=== PATIENT | female | born 1980 | race Caucasian/White ===

== ENCOUNTER 2020-01-02 15:10 | Emergency (ER) | payer MEDICAID ==
[~2020-01-02] VITALS: Ht 154.9 cm; Wt 64.5 kg
[2020-01-02 15:14] VITALS: BP 129/64
[2020-01-02] MEDS ORDERED: DIPHENHYDRAMINE 25 MG CAPSULE PO ONE (15:30)
--- NOTE | 2020-01-02 16:22 | NUR ---
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 AURELIA
[2020-01-02] MEDS ORDERED: DIPHENHYDRAMINE 50 MG CAPSULE ONE (16:59)
[2020-01-02] MEDS ORDERED: FAMOTIDINE 20 MG TABLET ONE (16:59)
[2020-01-02] MEDS ORDERED: FAMOTIDINE 20 MG TABLET PO ONE (17:00)
== END 2020-01-02 17:09 | disposition home or self-care (01) ==
LOC: ED 16:45
DX: L20.9 Atopic dermatitis, unspecified (principal); L50.8 Other urticaria
CPT/HCPCS: 99284; J7512; Q0163

== ENCOUNTER 2020-01-04 23:58 | Emergency (ER) | payer MEDICAID ==
[~2020-01-04] VITALS: Ht 154.9 cm; Wt 60.0 kg
[2020-01-05 00:03] VITALS: BP 119/68
--- NOTE | 2020-01-05 01:00 | NUR ---
PT BROUGHT BACK TO ROOM AT THIS TIME.
--- NOTE | 2020-01-05 01:08 | NUR ---
THIS IS A 39 YO F W/ C/O SUDDEN ONSET RT FOOT PAIN. PT DENIES INJ. PT CAN BEAR MINIMAL WEIGHT. RESP EVEN AND UNLABORED, NADN. PT RESTING ON GURNEY AWAITING ED EVAL.
[2020-01-05] MEDS ORDERED: IBUPROFEN 600 MG TABLET PO ONE (01:30)
[2020-01-05] MEDS ORDERED: IBUPROFEN 600 MG TABLET ONE (01:31)
--- NOTE | 2020-01-05 01:34 | NUR ---
PT MEDICATED PER EMAR.
--- NOTE | 2020-01-05 01:53 | NUR ---
Report received from ALFRED Minor. This RN to assume care. Patient getting xray.
--- NOTE | 2020-01-05 01:53 | NUR ---
REPORT GIVEN TO EMILY SIMON.
== END 2020-01-05 03:04 | disposition home or self-care (01) ==
LOC: ED 01-05 02:15
DX: M25.571 Pain in right ankle and joints of right foot (principal); Z72.9 Problem related to lifestyle, unspecified; X58.XXXA Exposure to other specified factors, initial encounter; Y93.89 Activity, other specified; Y92.488 Other paved roadways as the place of occurrence of the external cause; Y99.8 Other external cause status
CPT/HCPCS: 99283

== ENCOUNTER 2020-05-07 18:55 | Emergency (ER) | payer MEDICAID ==
[~2020-05-07] VITALS: Ht 154.9 cm; Wt 62.8 kg
[2020-05-07 19:32] LABS: BASOPHILS # (AUTO) 0.04 x10^3/uL (0-0.1); BASOPHILS % (AUTO) 0 % (0-1); EOSINOPHILS # (AUTO) 0.08 x10^3/uL (0-0.4); EOSINOPHILS % (AUTO) 1 % (1-7); LYMPHOCYTES # (AUTO) 1.98 x10^3/uL (1-3.4); LYMPHOCYTES % (AUTO) 16 % (22-44); MD NO; MEAN CORPUSCULAR HEMOGLOBIN 31.1 pg (27.0-34.8); MEAN CORPUSCULAR HGB CONC 32.7 g/dL (32.4-35.8); MEAN CORPUSCULAR VOLUME 95.3 fL (80-100); MEAN PLATELET VOLUME 7.7 fL (7.4-10.4); MONOCYTES # (AUTO) 0.65 x10^3/uL (0.2-0.8); MONOCYTES % (AUTO) 5 % (2-9); NEUTROPHILS # (AUTO) 9.49 x10^3/uL (1.8-6.8); NEUTROPHILS % (AUTO) 78 % (42-75); PLATELET COUNT 417 x10^3/uL (130-400); RED BLOOD COUNT 4.14 x10^6/uL (3.82-5.3); RED CELL DISTRIBUTION WIDTH 14.5 % (9.6-15.2)
[2020-05-07 19:47] LABS: ALANINE AMINOTRANSFERASE 16 U/L (12-78); ALBUMIN 3.5 g/dL (3.4-5.0); ANION GAP 9 mmol/L (5-15); CALCIUM 9.3 mg/dL (8.5-10.1); CHLORIDE 104 mmol/L (98-107)
[2020-05-07 19:50] LABS: ALKALINE PHOSPHATASE 105 U/L (45-117); BILIRUBIN,TOTAL 0.3 mg/dL (0.2-1.0); CREATININE 0.87 mg/dL (0.55-1.02); TOTAL PROTEIN 8.8 g/dL (6.4-8.2)
[2020-05-07] MEDS ORDERED: SULFAMETH./TRIMETHOPRIM DS 800MG/160MG TABLET ONE (20:29)
[2020-05-07] MEDS ORDERED: CEPHALEXIN 500 MG CAPSULE ONE (20:29)
[2020-05-07] MEDS ORDERED: SULFAMETH./TRIMETHOPRIM DS 800MG/160MG TABLET PO ONE (20:30)
[2020-05-07] MEDS ORDERED: POTASSIUM CHLORIDE 20 MEQ TAB.ER.PRT PO ONE (20:30)
[2020-05-07] MEDS ORDERED: CEPHALEXIN 500 MG CAPSULE PO ONE (20:30)
[2020-05-07] MEDS ORDERED: POTASSIUM CHLORIDE 20 MEQ TAB.ER.PRT ONE (20:38)
[2020-05-07 20:45] VITALS: BP 112/79
== END 2020-05-07 20:48 | disposition home or self-care (01) ==
LOC: ED 20:30
DX: L02.414 Cutaneous abscess of left upper limb (principal); L02.413 Cutaneous abscess of right upper limb; L02.416 Cutaneous abscess of left lower limb; L02.415 Cutaneous abscess of right lower limb; E87.6 Hypokalemia
CPT/HCPCS: 36415; 80053; 85025; 99284